=== PATIENT | male | born 1995 | race African-American/Black ===

== ENCOUNTER 2020-03-05 10:44 | Emergency (ER) | payer OTHER ==
[2020-03-05 11:16] LABS: APPEARANCE,URINE CLEAR (CLEAR); BILIRUBIN,URINE NEGATIVE (NEGATIVE); COLOR,URINE YELLOW (YELLOW); GLUCOSE, URINE (UA) NEGATIVE (NEGATIVE); KETONES,URINE NEGATIVE (NEGATIVE); LEUKOCYTE ESTERASE ,URINE NEGATIVE (NEGATIVE); NITRATE,URINE NEGATIVE (NEGATIVE); OCCULT BLOOD,URINE NEGATIVE (NEGATIVE); PROTEIN,URINE NEGATIVE (NEGATIVE); UROBILINOGEN,URINE 0.2 mg/dL (0.2-1.0)
[2020-03-08 14:11] LABS: CHLAMYDIA DNA N.A.AMPLIFY Negative (Negative)
== END 2020-03-05 12:31 | disposition home or self-care (01) ==
LOC: EDH 10:44
DX: R10.30 Lower abdominal pain, unspecified (principal); Z98.890 Other specified postprocedural states
CPT/HCPCS: 81003; 87486; 87797

== ENCOUNTER 2020-04-29 22:32 | Emergency (ER) | payer OTHER ==
[2020-04-29] MEDS ORDERED: KETOROLAC TROMETHAMINE 60 MG/2 ML VIAL ONE (22:56)
[2020-04-29] MEDS ORDERED: CYCLOBENZAPRINE HCL 10 MG TABLET ONE (22:57)
[2020-04-29 23:08] LABS: APPEARANCE,URINE Clear (CLEAR); BILIRUBIN,URINE Negative (NEGATIVE); COLOR,URINE Yellow (YELLOW); GLUCOSE, URINE (UA) Negative (NEGATIVE); KETONES,URINE Trace mg/dL (NEGATIVE); LEUKOCYTE ESTERASE ,URINE Trace (NEGATIVE); NITRATE,URINE Negative (NEGATIVE); OCCULT BLOOD,URINE Negative (NEGATIVE); PH,URINE 5.5 (5.0-8.0); PROTEIN,URINE Negative (NEGATIVE)
[2020-04-29 23:27] LABS: BACTERIA,URINE None Seen /HPF (None Seen); MUCUS,URINE Rare LPF (None Seen); RBC,URINE None Seen /HPF (0-1); SQUAMOUS EPITHELIAL CELL,UR Rare /HPF (0-2); WBC,URINE 0-1 /HPF (0-1)
[2020-04-29 23:43] LABS: EOSINOPHILS % (AUTO) 3.4 % (0.0-8.0); HEMATOCRIT 38.7 % (42-54); LYMPHOCYTES % (AUTO) 51.1 % (21.0-51.0); MEAN CORPUSCULAR HEMOGLOBIN 30.3 pg (27.0-33.0); MEAN CORPUSCULAR HGB CONC 33.6 g/dL (32.0-36.0); MEAN CORPUSCULAR VOLUME 90.2 fL (79-99); MONOCYTES % (AUTO) 10.1 % (3.0-13.0); NEUTROPHILS % (AUTO) 34.4 % (40.0-77.0); PLATELET COUNT (AUTO) 173 K/uL (130-400); RED BLOOD CELL COUNT(AUTO) 4.29 MIL/uL (4.50-6.20); RED CELL DISTRIBUTION WIDTH 11.7 % (11.0-15.5); WHITE BLOOD COUNT (AUTO) 4.2 K/uL (4.8-10.8)
[2020-04-29 23:57] LABS: CREATININE 1.2 mg/dL (0.5-1.5); POTASSIUM 3.5 mmol/L (3.5-5.1)
[2020-04-30 00:03] LABS: ALBUMIN 3.6 g/dL (3.5-5.0); BILIRUBIN,TOTAL 0.6 mg/dL (0.2-1.0); TOTAL PROTEIN, SERUM 7.3 g/dL (6.0-8.3)
[2020-04-30] MEDS ORDERED: LACTULOSE 20 GM/30 ML UDCUP ONE ×2 (00:37→01:00)
== END 2020-04-30 00:55 | disposition home or self-care (01) ==
LOC: EDH 22:32
DX: M54.5 Low back pain (principal); K59.00 Constipation, unspecified
CPT/HCPCS: 36415; 74176; 80053; 81001; 83690; 85025; 99284; J1885

== ENCOUNTER → 2020-06-27 | Outpatient (CLI) | payer OTHER | END | disposition home or self-care (01) | LOC: RAH 08:37 → EDBD 09:00 | PROVIDERS: ATTEND Family Medicine | DX: M65.9 Synovitis and tenosynovitis, unspecified (principal); M25.40 Effusion, unspecified joint; Z87.828 Personal history of other (healed) physical injury and trauma | CPT/HCPCS: 73221 ==

== ENCOUNTER 2020-09-26 15:34 | Emergency (ER) | payer OTHER ==
[~2020-09-26] VITALS: Ht 175.3 cm; Wt 81.6 kg
[2020-09-26 15:35] VITALS: BP 128/61
[2020-09-26 17:59] LABS: APPEARANCE,URINE Clear (CLEAR); BILIRUBIN,URINE Negative (NEGATIVE); COLOR,URINE Yellow (YELLOW); GLUCOSE, URINE (UA) Negative (NEGATIVE); KETONES,URINE Negative (NEGATIVE); LEUKOCYTE ESTERASE ,URINE Negative (NEGATIVE); NITRATE,URINE Negative (NEGATIVE); OCCULT BLOOD,URINE Negative (NEGATIVE); PH,URINE 6.5 (5.0-8.0); PROTEIN,URINE Negative (NEGATIVE)
[2020-09-26] MEDS ORDERED: 0.9%NACL 1000ML 1,000 ML IV ONE (18:00)
[2020-09-26] MEDS ORDERED: ACETAMINOPHEN 500 MG TABLET PO ONE (18:00)
[2020-09-26 18:09] LABS: BASOPHILS % (AUTO) 0.4 % (0.0-5.0); EOSINOPHILS % (AUTO) 0.4 % (0.0-8.0); HEMATOCRIT 41.1 % (42-54); LYMPHOCYTES % (AUTO) 18.6 % (21.0-51.0); MEAN CORPUSCULAR HEMOGLOBIN 30.9 pg (27.0-33.0); MEAN CORPUSCULAR HGB CONC 32.6 g/dL (32.0-36.0); MEAN CORPUSCULAR VOLUME 94.9 fL (79-99); MONOCYTES % (AUTO) 15.3 % (3.0-13.0); NEUTROPHILS % (AUTO) 64.9 % (40.0-77.0); PLATELET COUNT (AUTO) 160 K/uL (130-400); RED BLOOD CELL COUNT(AUTO) 4.33 MIL/uL (4.50-6.20); RED CELL DISTRIBUTION WIDTH 11.8 % (11.0-15.5); WHITE BLOOD COUNT (AUTO) 4.5 K/uL (4.8-10.8)
[2020-09-26 18:28] LABS: CREATININE 1.4 mg/dL (0.5-1.5); POTASSIUM 4.2 mmol/L (3.5-5.1)
[2020-09-26 18:33] LABS: ALBUMIN 3.8 g/dL (3.5-5.0); BILIRUBIN,TOTAL 0.4 mg/dL (0.2-1.0); TOTAL PROTEIN, SERUM 7.5 g/dL (6.0-8.3)
[2020-09-26] MEDS ORDERED: AMOX-429 PO (19:02)
[2020-09-26] MEDS ORDERED: ALBUHFA IH (19:02)
[2020-09-26] MEDS ORDERED: ACET-2247 PO (19:02)
[2020-09-26] MEDS ORDERED: CEFTRIAXONE 1G VIAL IVP ONE (20:00)
[2020-09-26] MEDS ORDERED: AZITHROMYCIN 250 MG TABLET PO ONE (20:00)
== END 2020-09-26 19:29 | disposition home or self-care (01) ==
LOC: EDH 15:34
DX: U07.1 COVID-19 (principal); J12.82 Pneumonia due to coronavirus disease 2019; Z79.899 Other long term (current) drug therapy
CPT/HCPCS: 36415; 71045; 80053; 81003; 83605; 85025; 87040 ×2; 87635; 87804 ×2; 87880; 96361; 96374; 99284; C9803; J0696; J7030

== ENCOUNTER 2020-09-28 21:44 | Emergency (ER) | payer OTHER ==
[~2020-09-28] VITALS: Ht 175.3 cm; Wt 84.8 kg
[~2020-09-28 21:44] MED LIST: ACET-2247 PO; ALBUHFA IH; AMOX-429 PO
[2020-09-28 22:45] VITALS: BP 107/71
[2020-09-28] MEDS ORDERED: METOCLOPRAMIDE 10 MG/2 ML VIAL IVP ONE (23:00)
[2020-09-28] MEDS ORDERED: 0.9%NACL 1000ML 1,000 ML IV ONE (23:00)
[2020-09-28] MEDS ORDERED: KETOROLAC 30MG VIAL (30MG/ML) IV ONE (23:00)
[2020-09-28] MEDS ORDERED: ONDA4TAB10 PO (23:41)
[2020-09-28] MEDS ORDERED: METO-296 PO (23:41)
== END 2020-09-28 23:46 | disposition home or self-care (01) ==
LOC: EDH 21:58
DX: U07.1 COVID-19 (principal); E86.0 Dehydration; Z79.899 Other long term (current) drug therapy
CPT/HCPCS: 71045; 96361; 96374; 96375; 99284; J1885; J2765; J7030